=== PATIENT | male | born 1970 | race Caucasian/White ===

== ENCOUNTER → 2018-01-20 13:39 | Outpatient (CLI) | payer MEDICAID, SELFPAY ==
--- NOTE | 2018-01-20 13:47 | RAD_ITS ---
STUDY: X-RAY - CERVICAL SPINE REASON FOR EXAM: Male, 47 years old. Neck pain, felt 23 feet headfirst 14 years ago. TECHNIQUE: 4 view(s) of the cervical spine were obtained. COMPARISON: None FINDINGS: Normal anterior atlantoaxial articulation. Normal odontoid process. Normal cervical lordosis. There is fusion hardware at C5-6 with disc spacer in place showing normal alignment and no evidence of hardware failure. Endplate degenerative change of C5 is noted with anterior degenerative disc changes. Normal disc space heights. Normal visualized intervertebral neuroforamina. The soft tissue structures are unremarkable. RAD/Cerv Spine 2 or 3 Views IMPRESSION: C5-6 fusion hardware and degenerative changes above with no evidence of hardware failure or malalignment. Electronically Signed: Albert Horta DO at 21:10 EDT , Service support ,
--- NOTE | 2018-01-20 13:47 | RAD_ITS ---
STUDY: X-RAY - LUMBAR SPINE REASON FOR EXAM: Male, 47 years old. Lower back pain. TECHNIQUE: 3 view(s) of the lumbar spine were obtained. COMPARISON: None FINDINGS: Normal lumbar lordosis. There is no substantial scoliosis. There is a normal alignment of the vertebrae. There is multilevel endplate spondylosis of the lumbar vertebrae. Normal disc space heights. The soft tissue structures are unremarkable. RAD/Lumbar Spine 2 or 3 Views IMPRESSION: Endplate degenerative change with no evidence of malalignment or significant disc space loss. Electronically Signed: Albert Horta DO at 22:48 EDT , Service support ,
[2018-01-20 15:24] LABS: Amphetamine Urine VISTA NEGATIVE (<1000 ng/mL); Barbiturate Urine VISTA NEGATIVE (< 200 ng/mL); Benzodiazepine Urine VISTA NEGATIVE (< 200 ng/mL); Cocaine Urine VISTA NEGATIVE (< 300 ng/mL); Ecstacy Urine VISTA NEGATIVE (< 500 ng/mL); Methadone Urine VISTA NEGATIVE (< 300 ng/mL); PCP Urine VISTA NEGATIVE (< 25 ng/mL); THC Urine VISTA NEGATIVE (< 50 ng/mL); Vista UDS pH Range 6
== END ==
PROVIDERS: Family Provider Internal Medicine; PCP Internal Medicine; Visit Provider Anesthesiology Pain Medicine
DX: M54.9 Dorsalgia, unspecified (principal); M54.2 Cervicalgia
CPT/HCPCS: 72040; 72100; 80307

== ENCOUNTER → 2018-12-24 08:51 | Outpatient (CLI) | payer MEDICAID, SELFPAY ==
[2018-12-03 12:16] VITALS: BMI 55.3
== END ==
PROVIDERS: Family Provider Internal Medicine; PCP Internal Medicine; Visit Provider Anesthesiology Pain Medicine
DX: Z53.9 Procedure and treatment not carried out, unspecified reason (principal)

== ENCOUNTER → 2018-12-28 09:06 | Outpatient (CLI) | payer MEDICAID, SELFPAY ==
[2018-12-03 12:16] VITALS: BP 162/93; PULSE 86; RESP 18; TEMP 36.6; O2SAT 98; BMI 55.3
== END ==
PROVIDERS: Family Provider Internal Medicine; PCP Internal Medicine; Referring Provider Anesthesiology Pain Medicine; Visit Provider Anesthesiology Pain Medicine
DX: M54.2 Cervicalgia (principal); M96.1 Postlaminectomy syndrome, not elsewhere classified; M54.14 Radiculopathy, thoracic region; M51.34 Other intervertebral disc degeneration, thoracic region; Z53.9 Procedure and treatment not carried out, unspecified reason
CPT/HCPCS: J7120

== ENCOUNTER → 2018-12-31 08:29 | Outpatient (CLI) | payer MEDICAID, SELFPAY ==
[2018-12-31 08:09] VITALS: BMI 55.3
--- NOTE | 2018-12-31 08:31 | RAD_ITS ---
STUDY: X-RAY - RIGHT SHOULDER REASON FOR EXAM: Bilateral shoulder pain. TECHNIQUE: 4 view(s) of the shoulder. COMPARISON: None. FINDINGS: Normal glenohumeral articulation. Normal acromioclavicular joint. Normal acromion. Normal humeral head and visualized proximal humerus. The soft tissue structures are unremarkable. Normal visualized pulmonary apex. RAD/Shoulder min 2 Views IMPRESSION: Normal x-ray examination of the right shoulder. Electronically Signed: Candido Weber MD at 15:34 EDT Tel , Service support ,
--- NOTE | 2018-12-31 08:31 | RAD_ITS ---
STUDY: X-RAY - LEFT SHOULDER REASON FOR EXAM: Bilateral shoulder pain. TECHNIQUE: 4 view(s) of the shoulder. COMPARISON: None. FINDINGS: Normal glenohumeral articulation. Normal acromioclavicular joint. Normal acromion. Normal humeral head and visualized proximal humerus. The soft tissue structures are unremarkable. Normal visualized pulmonary apex. RAD/Shoulder min 2 Views IMPRESSION: Normal x-ray examination of the left shoulder. Electronically Signed: Candido eWber MD at 15:35 EDT Tel , Service support ,
== END ==
PROVIDERS: Family Provider Internal Medicine; PCP Internal Medicine; Referring Provider Orthopaedic Surgery; Visit Provider Orthopaedic Surgery
DX: M25.511 Pain in right shoulder (principal); M25.512 Pain in left shoulder
CPT/HCPCS: 73030

== ENCOUNTER → 2019-01-11 11:12 | Outpatient (CLI) | payer MEDICAID, SELFPAY ==
[2018-12-31 08:09] VITALS: BMI 55.3
[2019-01-11 13:33] LABS: Amphetamine Urine VISTA NEGATIVE (<1000 ng/mL); Barbiturate Urine VISTA NEGATIVE (< 200 ng/mL); Benzodiazepine Urine VISTA NEGATIVE (< 200 ng/mL); Cocaine Urine VISTA NEGATIVE (< 300 ng/mL); Ecstacy Urine VISTA NEGATIVE (< 500 ng/mL); Methadone Urine VISTA NEGATIVE (< 300 ng/mL); PCP Urine VISTA NEGATIVE (< 25 ng/mL); THC Urine VISTA NEGATIVE (< 50 ng/mL); Vista UDS pH Range 5
== END ==
PROVIDERS: Family Provider Internal Medicine; PCP Internal Medicine; Referring Provider Anesthesiology Pain Medicine; Visit Provider Anesthesiology Pain Medicine
DX: F11.20 Opioid dependence, uncomplicated (principal)
CPT/HCPCS: 80307

== ENCOUNTER 2019-04-15 12:58 | Day surgery (SDC) | payer MEDICAID, SELFPAY ==
[2018-12-31 08:09] VITALS: BMI 55.3
[2019-04-15] MEDS: Lactated Ringers 1,000 ML 100 ML IV (13:39)
[2019-04-15 13:40] VITALS: BP 164/97; PULSE 93; RESP 18; TEMP 36.6; O2SAT 97; BMI 54.8
[2019-04-15 13:41] LABS: Bedside Glucose 197 mg/dL (70-110)
--- NOTE | 2019-04-15 15:00 | RAD_ITS ---
PROCEDURE: Thoracic epidural spinal block with steroid injection at T6-7 DATE OF EXAMINATION: 04/15/2019 INDICATION: Male, 48 years old. Back pain FLUOROSCOPY TIME (if supplied): (0:06) minutes/seconds RADIATION DOSAGE (If Supplied By Facility): A single fluoroscopic x-ray was performed. A single fluoroscopic image was performed showing a needle in place in the thoracic spine project over the lower mid thoracic pedicles. RAD/Spine 1 View Any Level IMPRESSION: A single fluoroscopy x-ray is noted with a needle in place in the mid thoracic spine. Electronically Signed: Daniel Gramajo, at 18:09 EDT Tel , Service support ,
[2019-04-15] MEDS: Triamcinolone Acetonide 40 MG/ML Vial (15:06)
[2019-04-15 15:15] VITALS: BP 128/63; BP 164/97; PULSE 81; RESP 16; TEMP 36.3; O2SAT 96
[2019-04-15 15:20] VITALS: BP 149/75; BP 164/97; PULSE 81; RESP 16; O2SAT 97
[2019-04-15 15:25] VITALS: BP 148/81; BP 164/97; PULSE 80; RESP 16; O2SAT 98
[2019-04-15 15:30] VITALS: BP 146/83; BP 164/97; PULSE 80; RESP 16; TEMP 36.4; O2SAT 97
[2019-04-15 16:00] VITALS: BP 164/97
== END 2019-04-15 16:01 | disposition home or self-care (01) ==
LOC: SDC 12:59 → AC 13:00
PROVIDERS: Referring Provider Anesthesiology Pain Medicine; Visit Provider Anesthesiology Pain Medicine
PROC: 3E0S3BZ Introduction of Anesthetic Agent into Epidural Space, Percutaneous Approach (ICD-10-PCS; CPT 62321; principal; 2019-04-15 14:40)
DX: M51.14 Intervertebral disc disorders with radiculopathy, thoracic region (principal); M96.1 Postlaminectomy syndrome, not elsewhere classified; M46.1 Sacroiliitis, not elsewhere classified; M51.36 Other intervertebral disc degeneration, lumbar region; M51.37 Other intervertebral disc degeneration, lumbosacral region; R07.89 Other chest pain; Z79.899 Other long term (current) drug therapy; Z79.84 Long term (current) use of oral hypoglycemic drugs; E11.9 Type 2 diabetes mellitus without complications; I10 Essential (primary) hypertension; K21.9 Gastro-esophageal reflux disease without esophagitis
CPT/HCPCS: 62321; 64490; 72020; 82962; J7120

== ENCOUNTER 2019-08-31 14:19 | Day surgery (SDC) | payer MEDICAID, SELFPAY ==
[2019-08-31 15:05] VITALS: BP 159/90; PULSE 80; RESP 16; TEMP 36.2; O2SAT 96; BMI 54.1
[2019-08-31 15:15] LABS: Bedside Glucose 104 mg/dL (70-110)
--- NOTE | 2019-08-31 16:15 | RAD_ITS ---
STUDY: X-RAY - LUMBAR SPINE REASON FOR EXAM: Male, 49 years old. Patient undergoing lumbar epidural block TECHNIQUE: view(s) of the lumbar spine were obtained. COMPARISON: None FLUOROSCOPY TIME: 11.1 seconds VIEWS: Single AP intraoperative fluoroscopic spot image of the lumbar spine. FINDINGS: Visualized lumbar spine demonstrates no malalignment. No vertebral body fracture. Spinal needle advanced from an interspinous approach. Contrast opacification layering over the accessed vertebral level, presumably within the epidural space, though not definitive given the lack of a lateral view. RAD/Spine 1 View Any Level IMPRESSION: Presumed needle tip access of the central epidural space of the lumbar spine. Electronically Signed: Nima Waters MD at 3:24 EST Tel , Service support ,
[2019-08-31] MEDS: Triamcinolone Acetonide 40 MG/ML Vial (16:27)
[2019-08-31 16:51] VITALS: BP 147/88; BP 159/90; PULSE 80; RESP 22; TEMP 36.6; O2SAT 99
[2019-08-31 16:55] VITALS: BP 145/81; BP 159/90; PULSE 79; RESP 20; O2SAT 100
[2019-08-31 17:00] VITALS: BP 159/90; BP 171/100; PULSE 74; RESP 20; O2SAT 99
[2019-08-31 17:10] VITALS: BP 159/90; BP 176/98; PULSE 77; RESP 20; TEMP 36.7; O2SAT 100
[2019-08-31 17:27] VITALS: BP 159/90
== END 2019-08-31 17:30 | disposition home or self-care (01) ==
LOC: SDC 14:22 → AC 14:23
PROVIDERS: Referring Provider Anesthesiology Pain Medicine; Visit Provider Anesthesiology Pain Medicine
PROC: 3E0S3BZ Introduction of Anesthetic Agent into Epidural Space, Percutaneous Approach (ICD-10-PCS; CPT 62322; principal; 2019-08-31 16:10)
DX: M54.16 Radiculopathy, lumbar region (principal); M96.1 Postlaminectomy syndrome, not elsewhere classified; M51.36 Other intervertebral disc degeneration, lumbar region; M51.37 Other intervertebral disc degeneration, lumbosacral region; M54.17 Radiculopathy, lumbosacral region; E11.9 Type 2 diabetes mellitus without complications; I10 Essential (primary) hypertension; Z87.442 Personal history of urinary calculi
CPT/HCPCS: 62323; 64483; 72020; 82962; J7120

== ENCOUNTER → 2020-03-07 12:19 | Outpatient (CLI) | payer MEDICAID, SELFPAY ==
[2020-03-07 14:05] LABS: Amphetamine Urine VISTA NEGATIVE (<1000 ng/mL); Barbiturate Urine VISTA NEGATIVE (< 200 ng/mL); Benzodiazepine Urine VISTA NEGATIVE (< 200 ng/mL); Cocaine Urine VISTA NEGATIVE (< 300 ng/mL); Ecstacy Urine VISTA NEGATIVE (< 500 ng/mL); Methadone Urine VISTA NEGATIVE (< 300 ng/mL); PCP Urine VISTA NEGATIVE (< 25 ng/mL); THC Urine VISTA NEGATIVE (< 50 ng/mL); Vista UDS pH Range 6
== END ==
PROVIDERS: Referring Provider Anesthesiology Pain Medicine; Visit Provider Anesthesiology Pain Medicine
DX: F11.20 Opioid dependence, uncomplicated (principal)
CPT/HCPCS: 80307

== ENCOUNTER 2020-06-15 06:04 | Day surgery (SDC) | payer MEDICAID, SELFPAY ==
[2020-06-15 06:35] LABS: Bedside Glucose 250 mg/dL (70-110)
[2020-06-15 06:49] VITALS: BP 152/73; PULSE 81; RESP 18; TEMP 36.3; O2SAT 98; BMI 54.7
[2020-06-15] MEDS: Lactated Ringers 1,000 ML 100 ML IV (07:04)
--- NOTE | 2020-06-15 07:50 | RAD_ITS ---
PROCEDURE: Right T6-T7 thoracic epidural block. DATE OF EXAMINATION: 06/15/2020 INDICATION: Male, 50 years old. Chronic back pain FLUOROSCOPY TIME (if supplied): (2 seconds) minutes/seconds. Single image was obtained. Intraoperative imaging provided for right T6-T7 thoracic block. RAD/Spine 1 View Any Level IMPRESSION: Intraoperative imaging provided for right T6-T7 thoracic block. Electronically Signed: Aram Baldwin, at 14:18 EST , Service support ,
[2020-06-15] MEDS: Triamcinolone Acetonide 40 MG/ML Vial (08:08)
[2020-06-15] MEDS: Lidocaine 0.5% (50 ml) 50 ML Vial (08:10)
[2020-06-15 08:15] VITALS: BP 146/71; BP 152/73; PULSE 77; RESP 16; TEMP 35.8; O2SAT 100
[2020-06-15 08:20] VITALS: BP 151/80; BP 152/73; PULSE 76; RESP 16; O2SAT 99
[2020-06-15 08:25] VITALS: BP 152/73; BP 159/82; PULSE 80; RESP 16; O2SAT 100
[2020-06-15 08:30] VITALS: BP 152/73; BP 162/80; PULSE 76; RESP 16; TEMP 35.8; O2SAT 99
[2020-06-15 09:05] VITALS: BP 152/73
== END 2020-06-15 09:06 | disposition home or self-care (01) ==
LOC: SDC 06:05 → AC 06:05
PROVIDERS: Referring Provider Anesthesiology Pain Medicine; Visit Provider Anesthesiology Pain Medicine
PROC: 3E0S3BZ Introduction of Anesthetic Agent into Epidural Space, Percutaneous Approach (ICD-10-PCS; principal; 2020-06-15 07:45)
DX: M54.9 Dorsalgia, unspecified (principal); G89.29 Other chronic pain; M54.14 Radiculopathy, thoracic region; M54.12 Radiculopathy, cervical region; M51.34 Other intervertebral disc degeneration, thoracic region; M54.17 Radiculopathy, lumbosacral region; M51.37 Other intervertebral disc degeneration, lumbosacral region; M51.36 Other intervertebral disc degeneration, lumbar region; M50.30 Other cervical disc degeneration, unspecified cervical region; M54.13 Radiculopathy, cervicothoracic region; I10 Essential (primary) hypertension; Z87.442 Personal history of urinary calculi; E11.9 Type 2 diabetes mellitus without complications
CPT/HCPCS: 62321; 64490; 72020; 82962; J7120

== ENCOUNTER → 2020-09-27 09:54 | Outpatient (CLI) | payer MEDICARE, MEDICAID, SELFPAY ==
[2020-09-27 11:46] LABS: Amphetamine Urine VISTA NEGATIVE (<1000 ng/mL); Barbiturate Urine VISTA NEGATIVE (< 200 ng/mL); Benzodiazepine Urine VISTA NEGATIVE (< 200 ng/mL); Cocaine Urine VISTA NEGATIVE (< 300 ng/mL); Ecstacy Urine VISTA NEGATIVE (< 500 ng/mL); Methadone Urine VISTA NEGATIVE (< 300 ng/mL); PCP Urine VISTA NEGATIVE (< 25 ng/mL); THC Urine VISTA NEGATIVE (< 50 ng/mL); Vista UDS pH Range 5
== END ==
PROVIDERS: Referring Provider Anesthesiology Pain Medicine; Visit Provider Anesthesiology Pain Medicine
DX: F11.20 Opioid dependence, uncomplicated (principal)
CPT/HCPCS: 80307

== ENCOUNTER → 2020-10-24 13:49 | Outpatient (CLI) | payer MEDICARE, MEDICAID, SELFPAY ==
[2020-10-24 15:30] LABS: Amphetamine Urine VISTA NEGATIVE (<1000 ng/mL); Barbiturate Urine VISTA NEGATIVE (< 200 ng/mL); Benzodiazepine Urine VISTA NEGATIVE (< 200 ng/mL); Cocaine Urine VISTA NEGATIVE (< 300 ng/mL); Ecstacy Urine VISTA NEGATIVE (< 500 ng/mL); Methadone Urine VISTA NEGATIVE (< 300 ng/mL); PCP Urine VISTA NEGATIVE (< 25 ng/mL); THC Urine VISTA NEGATIVE (< 50 ng/mL); Vista UDS pH Range 6
== END ==
PROVIDERS: Referring Provider Anesthesiology Pain Medicine; Visit Provider Anesthesiology Pain Medicine
DX: F11.20 Opioid dependence, uncomplicated (principal)
CPT/HCPCS: 80307

== ENCOUNTER → 2021-01-16 15:04 | Outpatient (CLI) | payer MEDICARE, MEDICAID, SELFPAY ==
--- NOTE | 2021-01-16 15:30 | RAD_ITS ---
STUDY: X-RAY - THORACIC SPINE REASON FOR EXAM: Male, 50 years old. BACK PAIN TECHNIQUE: 3 view(s) of the thoracic spine were obtained. COMPARISON: None. FINDINGS: Normal kyphosis of the thoracic spine. There is no substantial scoliosis. There is multilevel endplate spondylosis of the thoracic vertebrae. There is multilevel disc space narrowing of the thoracic spine. No acute fracture. Status post anterior fusion of the lower cervical spine. The soft tissue structures are unremarkable. RAD/Thoracic Spine 2 Views IMPRESSION: Degenerative disease as described. No acute fracture or subluxation. Electronically Signed: Alejandra Ochoa MD at 2:17 EDT , Service support ,
--- NOTE | 2021-01-16 15:30 | RAD_ITS ---
STUDY: X-RAY - LUMBAR SPINE REASON FOR EXAM: Male, 50 years old. BACK PAIN TECHNIQUE: 2 view(s) of the lumbar spine were obtained. COMPARISON: Prior lumbar spine films of 01/20/2018 FINDINGS: Normal lumbar lordosis. There is no substantial scoliosis. There is a normal alignment of the vertebrae. Normal vertebral body height without fracture, osteolytic or blastic bone lesion. Mild generalized disc narrowing. Mild spondylitic endplate changes at L3-4 and L4-5. There is no demonstrated spondylolysis of the pars interarticulares. Mild atherosclerotic changes of the aorta. RAD/Lumbar Spine 2 or 3 Views IMPRESSION: Normal alignment of the lumbar spine without fracture, osteolytic or blastic bone lesions. Mild degenerative disc changes primarily at L3-4 and L4-5. Changes are not substantial from prior exam. Electronically Signed: Olena Casper MD at 16:45 EDT , Service support ,
== END ==
PROVIDERS: Referring Provider Anesthesiology Pain Medicine; Visit Provider Anesthesiology Pain Medicine
DX: M54.9 Dorsalgia, unspecified (principal)
CPT/HCPCS: 72070; 72100

== ENCOUNTER → 2021-04-09 11:26 | Outpatient (CLI) | payer MEDICARE, MEDICAID, SELFPAY ==
[2021-04-09 12:54] LABS: Amphetamine Urine VISTA NEGATIVE (<1000 ng/mL); Barbiturate Urine VISTA NEGATIVE (< 200 ng/mL); Benzodiazepine Urine VISTA NEGATIVE (< 200 ng/mL); Cocaine Urine VISTA NEGATIVE (< 300 ng/mL); Ecstacy Urine VISTA NEGATIVE (< 500 ng/mL); Methadone Urine VISTA NEGATIVE (< 300 ng/mL); PCP Urine VISTA NEGATIVE (< 25 ng/mL); THC Urine VISTA NEGATIVE (< 50 ng/mL); Vista UDS pH Range 6
== END ==
PROVIDERS: PCP Nurse Practitioner Family; Referring Provider Anesthesiology Pain Medicine; Visit Provider Anesthesiology Pain Medicine
DX: F11.20 Opioid dependence, uncomplicated (principal)
CPT/HCPCS: 80307

== ENCOUNTER 2021-06-25 09:15 | Day surgery (SDC) | payer MEDICARE, MEDICAID, SELFPAY ==
--- NOTE | 2021-06-25 09:16 | RAD_ITS ---
PROCEDURE: Thoracic epidural steroid injection. DATE OF EXAMINATION: 06/25/2021. INDICATION: Male, 51 years old. Back pain. FLUOROSCOPY TIME (if supplied): (6 seconds) minutes/seconds. One image was submitted. RAD/Spine 1 View Any Level IMPRESSION: Intraoperative imaging provided for thoracic epidural steroid injection. Electronically Signed: Aram Baldwin MD at 15:10 EST , Service support ,
[2021-06-25 09:55] VITALS: BP 156/86; PULSE 88; RESP 16; TEMP 35.9; O2SAT 99; BMI 53.4
[2021-06-25] MEDS: Lactated Ringers 1,000 ML 15 ML IV (09:58)
[2021-06-25 10:26] LABS: Bedside Glucose 243 mg/dL (70-110)
[2021-06-25] MEDS: Lidocaine 0.5% (50 ml) 50 ML Vial (11:12)
[2021-06-25 11:25] VITALS: BP 137/78; BP 156/86; PULSE 83; RESP 16; TEMP 36.1; O2SAT 98
[2021-06-25 11:30] VITALS: BP 143/86; BP 156/86; PULSE 77; RESP 16; O2SAT 99
[2021-06-25 11:35] VITALS: BP 133/71; BP 156/86; PULSE 79; RESP 16; O2SAT 99
[2021-06-25 11:40] VITALS: BP 139/70; BP 156/86; PULSE 78; RESP 16; TEMP 35.5; O2SAT 99
[2021-06-25 12:03] VITALS: BP 156/86
== END 2021-06-25 12:04 ==
LOC: SDC 09:18 → AC 09:19
PROVIDERS: PCP Nurse Practitioner Family; Referring Provider Anesthesiology Pain Medicine; Visit Provider Anesthesiology Pain Medicine
PROC: 3E0S3BZ Introduction of Anesthetic Agent into Epidural Space, Percutaneous Approach (ICD-10-PCS; CPT 62321; principal; 2021-06-25 10:55)
DX: M54.14 Radiculopathy, thoracic region (principal); E11.9 Type 2 diabetes mellitus without complications; I10 Essential (primary) hypertension
CPT/HCPCS: 62321; 64490; 72020; 82962; J7120

== ENCOUNTER → 2022-06-02 | Outpatient (CLI) | payer MEDICARE, MEDICAID, SELFPAY ==
[2022-06-02 13:56] LABS: Amphetamine Urine VISTA NEGATIVE (<1000 ng/mL); Barbiturate Urine VISTA NEGATIVE (< 200 ng/mL); Benzodiazepine Urine VISTA NEGATIVE (< 200 ng/mL); Cocaine Urine VISTA NEGATIVE (< 300 ng/mL); Ecstacy Urine VISTA NEGATIVE (< 500 ng/mL); Methadone Urine VISTA NEGATIVE (< 300 ng/mL); PCP Urine VISTA NEGATIVE (< 25 ng/mL); THC Urine VISTA NEGATIVE (< 50 ng/mL); Vista UDS pH Range 6
== END | disposition home or self-care (01) ==
PROVIDERS: PCP Nurse Practitioner Family; Referring Provider Anesthesiology Pain Medicine; Visit Provider Anesthesiology Pain Medicine
DX: F11.20 Opioid dependence, uncomplicated (principal)
CPT/HCPCS: 80307

== ENCOUNTER → 2022-12-08 | Outpatient (CLI) | payer MEDICARE, MEDICAID, SELFPAY ==
[2022-12-08 14:08] LABS: Amphetamine Urine VISTA NEGATIVE (<1000 ng/mL); Barbiturate Urine VISTA NEGATIVE (< 200 ng/mL); Benzodiazepine Urine VISTA NEGATIVE (< 200 ng/mL); Cocaine Urine VISTA NEGATIVE (< 300 ng/mL); Ecstacy Urine VISTA NEGATIVE (< 500 ng/mL); Methadone Urine VISTA NEGATIVE (< 300 ng/mL); PCP Urine VISTA NEGATIVE (< 25 ng/mL); THC Urine VISTA NEGATIVE (< 50 ng/mL); Vista UDS pH Range 6
== END | disposition home or self-care (01) ==
LOC: LAB 13:08
PROVIDERS: PCP Nurse Practitioner Family; Referring Provider Anesthesiology Pain Medicine; Visit Provider Anesthesiology Pain Medicine
DX: F11.20 Opioid dependence, uncomplicated (principal)
CPT/HCPCS: 80307

== ENCOUNTER → 2023-09-22 | Outpatient (CLI) | payer MEDICARE, MEDICAID, SELFPAY ==
--- NOTE | 2023-09-22 14:25 | RAD_ITS ---
STUDY: X-RAY - LUMBAR SPINE REASON FOR EXAM: Male, 53 years old. Back pain. TECHNIQUE: 2 view(s) of the lumbar spine were obtained. COMPARISON: 01/16/2021 FINDINGS: Normal lumbar lordosis. No scoliosis. Normal vertebral alignment. Diffuse mild lower thoracic and lumbosacral facet sclerosis. Stable diffuse mild intervertebral disc space narrowing with small osteophytes most marked at L3-4, L4-5 and L5-S1. Stable vascular calcification with new spinal stimulator the prior study. RAD/Lumbar Spine 2 or 3 Views IMPRESSION: Stable mild diffuse lower thoracic and lumbosacral. New spinal stimulator with proximal extent not identified. Electronically Signed: Lennox Vegas MD at 11:11 EDT ,
[2023-09-22 15:11] LABS: Amphetamine Urine VISTA NEGATIVE (<1000 ng/mL); Barbiturate Urine VISTA NEGATIVE (< 200 ng/mL); Benzodiazepine Urine VISTA NEGATIVE (< 200 ng/mL); Cocaine Urine VISTA NEGATIVE (< 300 ng/mL); Ecstacy Urine VISTA NEGATIVE (< 500 ng/mL); Methadone Urine VISTA NEGATIVE (< 300 ng/mL); PCP Urine VISTA NEGATIVE (< 25 ng/mL); THC Urine VISTA NEGATIVE (< 50 ng/mL); Vista UDS pH Range 5
== END | disposition home or self-care (01) ==
LOC: RAD 14:06
PROVIDERS: PCP Nurse Practitioner Family; Referring Provider Anesthesiology Pain Medicine; Visit Provider Anesthesiology Pain Medicine
DX: F11.20 Opioid dependence, uncomplicated (principal); M47.816 Spondylosis without myelopathy or radiculopathy, lumbar region
CPT/HCPCS: 72100; 80307

== ENCOUNTER → 2024-04-28 | Outpatient (CLI) | payer MEDICARE, MEDICAID, SELFPAY ==
[2024-04-28 13:29] LABS: Amphetamine Urine VISTA NEGATIVE (<1000 ng/mL); Barbiturate Urine VISTA NEGATIVE (< 200 ng/mL); Benzodiazepine Urine VISTA NEGATIVE (< 200 ng/mL); Cocaine Urine VISTA NEGATIVE (< 300 ng/mL); Ecstacy Urine VISTA NEGATIVE (< 500 ng/mL); Methadone Urine VISTA NEGATIVE (< 300 ng/mL); PCP Urine VISTA NEGATIVE (< 25 ng/mL); THC Urine VISTA NEGATIVE (< 50 ng/mL); Vista UDS pH Range 4
== END | disposition home or self-care (01) ==
LOC: LAB 11:34
PROVIDERS: PCP Nurse Practitioner Family; Referring Provider Anesthesiology Pain Medicine; Visit Provider Anesthesiology Pain Medicine
DX: F11.20 Opioid dependence, uncomplicated (principal)
CPT/HCPCS: 80307

== ENCOUNTER → 2024-11-15 | Outpatient (CLI) | payer MEDICARE, MEDICAID, SELFPAY ==
[2024-11-15 10:58] LABS: Absolute Lymphocyte Count 2.15 X10^3/uL (0.83-4.51); Absolute Neutrophil Count 8.8 X10^3/uL (2.0-7.7); Basophil# 0.06 X10^3/uL; Basophil% 0.5 % (0-1); Eosinophil# 0.08 X10^3/uL; Eosinophils% 0.7 % (0-5); Hematocrit 35.6 % (40-54); Hemoglobin 11.7 g/dL (13.0-16.5); Lymphocyte # 2.15 X10^3/ul (0.83-4.51); Lymphocyte % 18.2 % (19-41); Mean Corp Hgb Conc 32.9 g/dL (32-36); Mean Corpuscular Hgb 27.3 pg (27.0-32.0); Mean Corpuscular Volume 83.2 fL (80-94); Mean Platelet Vol. 9.5 fl (6.2-12.0); Monocyte# 0.63 X10^3/uL; Monocyte% 5.3 % (0-10); NRBC Flagged by Analyzer 0 % (0-5); Neutrophil # 8.75 X10^3/uL (2.7-7.7); Neutrophil % 74.1 % (47-70); Platelet Count 292 K/mm3 (150-450); RBC Distribution Width CV 13.7 % (11.6-14.6); RBC Distribution Width SD 41.3 fl (35.1-43.9); Red Blood Count 4.28 M/mm3 (4.6-6.2); White Blood Count 11.8 K/mm3 (4.4-11.0)
[2024-11-15 11:59] LABS: AST(SGOT) 21 U/L (<=37); Alanine Aminotransfer ALT/SGPT 27 U/L (<=46); Albumin, Serum 4.2 g/dL (3.5-5.0); Alkaline Phosphatase 112 U/L (40-129); Anion Gap 12 (5-15); BUN 18 mg/dL (4-19); BUN/Creat Ratio 20.1 RATIO (10-20); Bilirubin, Direct 0.15 mg/dL (0.00-0.30); Calcium,Total 9.7 mg/dL (7.6-11.0); Carbon Dioxide 26.3 mmol/L (21.0-32.0); Chloride 96 mmol/L (98-108); Creatinine, Serum 0.92 mg/dL (0.70-1.20); EST Glomerular Filtration Rate 98 (>60); Globulin 2.8 g/dL (2.2-4.2); Glucose 315 mg/dL (70-99); Hepatitis B Surface Antibody Nonreactive; Hepatitis C Antibody Nonreactive (Nonreactive); Iron 55 ug/dL (65-175); Iron Binding Capacity,Total 271 ug/dL (250-450); Iron Binding Capacity,Unsat 216 ug/dL (228-428); Potassium 3.9 mmol/L (3.3-5.1); Sodium Level 135 mmol/L (133-145); Total Bilirubin 0.34 mg/dL (0.00-1.30)
[2024-11-15 12:35] LABS: Ferritin 219 ng/mL (37-417)
[2024-11-16 05:07] LABS: Hepatitis A AB, Total Negative (Negative); Hepatitis B Core Ab Total Negative (Negative)
[2024-11-16 19:20] LABS: Hepatitis B Surface Antigen Nonreactive (Nonreactive)
== END | disposition home or self-care (01) ==
LOC: LAB 10:37
PROVIDERS: PCP Nurse Practitioner Family; Referring Provider Nurse Practitioner Acute Care; Visit Provider Nurse Practitioner Acute Care
DX: K76.0 Fatty (change of) liver, not elsewhere classified (principal); D64.9 Anemia, unspecified; R10.11 Right upper quadrant pain
CPT/HCPCS: 80048; 80076; 82728; 83540; 83550; 85025; 86704; 86706; 86708; 86803; 87340

== ENCOUNTER → 2024-11-25 | Outpatient (CLI) | payer MEDICARE, MEDICAID, SELFPAY ==
--- NOTE | 2024-11-25 07:58 | US_ITS ---
PROCEDURE: ABD LIMITED W/ ELASTOGRAPHY REASON FOR EXAM: LIVER STEATOSIS COMPARISON: None TECHNIQUE: Right upper quadrant abdominal ultrasound. Rocio ElastQ Imaging shear wave elastography for non-invasive assessment of liver tissue stiffness. Rocio EPIQ Elite. FINDINGS: LIVER: Size: Enlarged (hepatomegaly) Length: 22.4 cm cm Echotexture: Diffusely echogenic suggesting fatty infiltration Contour: Normal Lesions: None identified Elastography: EQI Med: 9.5 kPa EQI Med Eloy: 1.77 m/s IQR/Med: 23 %* GALLBLADDER: Normal COMMON BILE DUCT: Normal 4.2 mm. PANCREAS: Visualized portions are unremarkable. The distal body and tail are obscured by bowel gas. Right kidney is unremarkable. Splenomegaly. The spleen measures 19 cm 7.1 cm 6.9 cm. There are multiple calcified splenic granulomas. US/ABD Limited w/ Elastography IMPRESSION: MODERATE TO SEVERE HEPATIC FIBROSIS Splenomegaly. Reference Values: SRU <1.37 m/s (5.7kPa): No to mild fibrosis 1.37 m/s - 2.2 m/s: Moderate to severe fibrosis >2.2 m/s (15kPa): Significant fibrosis / cirrhosis METAVIR Score F2 or higher: 1.34 m/s (5.7kPa) F3 or higher: 1.55 m/s (7.3kPa) F4: 1.80 m/s (10kPa) * If the IQR/Med is >30%, the variance in the measurements is a large and the a ccuracy of the measurement may be in question. Reading Location: [place] [id number]
== END | disposition home or self-care (01) ==
LOC: US 07:54
PROVIDERS: PCP Nurse Practitioner Family; Referring Provider Nurse Practitioner Acute Care; Visit Provider Nurse Practitioner Acute Care
DX: K76.0 Fatty (change of) liver, not elsewhere classified (principal)
CPT/HCPCS: 76705; 76981

== ENCOUNTER → 2024-12-27 | Outpatient (CLI) | payer MEDICARE, MEDICAID, SELFPAY ==
--- NOTE | 2024-12-27 12:08 | RAD_ITS ---
PROCEDURE: THORACIC SPINE 3 VIEWS 12/27/2024 REASON FOR EXAM: PAIN TECHNIQUE: THORACIC SPINE 3 VIEWS COMPARISON: Thoracic spine radiographs 09/22/2023 FINDINGS: Evaluation of the upper thoracic spine is limited due to overlapping structures. Otherwise, thoracic vertebral body heights are maintained. There is multilevel disc height loss and endplate osteophyte formation. Postoperative changes of the lower cervical spine. Spinal stimulator leads terminating in the midthoracic spine, unchanged. RAD/Thoracic Spine 3 Views IMPRESSION: Slightly limited exam, without definite evidence of thoracic vertebral compress ion deformity. There are [id number] multilevel degenerative changes. Reading Location: [facility]
[2024-12-27 14:05] LABS: Amphetamine Urine NEGATIVE (<1000 ng/mL); Barbiturate Urine NEGATIVE (< 200 ng/mL); Benzodiazepine Urine NEGATIVE (< 200 ng/mL); Buprenorphine Urine NEGATIVE (< 200 ng/mL); Cocaine Urine NEGATIVE (< 300 ng/mL); Fentanyl, Urine NEGATIVE; Methadone Urine NEGATIVE (< 300 ng/mL); Opiates Urine NEGATIVE (< 300 ng/mL); Oxycodone, Urine PRESUMPTIVE POSITIVE (< 100 ng/mL); PCP Urine NEGATIVE (< 25 ng/mL); THC Urine NEGATIVE (< 50 ng/mL)
== END | disposition home or self-care (01) ==
LOC: LAB 11:57
PROVIDERS: PCP Nurse Practitioner Family; Referring Provider Anesthesiology Pain Medicine; Visit Provider Anesthesiology Pain Medicine
DX: M47.814 Spondylosis without myelopathy or radiculopathy, thoracic region (principal); F11.20 Opioid dependence, uncomplicated
CPT/HCPCS: 72072; 80307